=== PATIENT | male | born 1940 | race Caucasian/White ===

== ENCOUNTER 2021-09-11 12:07 | Outpatient (RCR) | payer OTHER, SELFPAY ==
[2021-09-11 14:10] VITALS: BP 129/73; PULSE 98; RESP 20; TEMP 36.8; O2SAT 98
[2021-09-11] MEDS: ACETAMINOPHEN 325 MG TABLET 650 MG PO (14:19)
[2021-09-11] MEDS: FAMOTIDINE 20 MG TABLET PO (14:19)
[2021-09-11] MEDS: diphenhydrAMINE HCl CAP 25 MG CAPSULE PO (14:20)
[2021-09-11 15:40] VITALS: BP 130/64; PULSE 87; O2SAT 99
== END 2021-09-11 17:00 ==
LOC: AMCINF 12:07
PROVIDERS: PCP Emergency Medicine; Visit Provider Internal Medicine Hematology & Oncology
DX: U07.1 COVID-19 (principal); I12.9 Hypertensive chronic kidney disease with stage 1 through stage 4 chronic kidney disease, or unspecified chronic kidney disease; I25.10 Atherosclerotic heart disease of native coronary artery without angina pectoris; N18.9 Chronic kidney disease, unspecified; R73.03 Prediabetes
CPT/HCPCS: A9270; M0247; Q0247